=== PATIENT | female | born 1960 ===

== ENCOUNTER 2021-11-14 06:22 | Day surgery (SDC) | payer OTHER ==
[~2021-11-14 06:22] MED LIST: AMITRIPTYLINE H50 MG PO; CLONAZEPAM2 M1 PO; SYNTHROID50 MCG PO
== END 2021-11-14 14:00 | disposition home or self-care (01) ==
LOC: CIR.AMB 06:22
PROVIDERS: ATTEND Otolaryngology
DX: H65.22 Chronic serous otitis media, left ear (principal); Z20.822 Contact with and (suspected) exposure to COVID-19